=== PATIENT | female | born 1970 | race Hispanic/Latino ===

== ENCOUNTER → 2017-11-20 | Outpatient (CLI) | payer OTHER ==
[~2017-11-20] MED LIST: ANUSOL-HC25 MG RC; APPLE CIDER VI300 MG PO; APPLE CIDER VINEGAR PO; AUGMENTIN 500-1 EACH PO; AZO95 MG PO; COLACE100 MG PO; HYD RC; LEVAQUIN500 MG PO; LIDOCAINE CREAM TP; LIDOCAINE HCL RC; LIPO PO; MELOXICAM7.5 MG PO; MOBIC7.5 MG/5 M PO; MYRBETRIQ50 MG PO; PHENTERMINE H37.5 MG PO; SENNA-S TABLET1 EA PO; SURFAK240 MG PO; TYLENOL WITH C1 EACH PO; ULTRAM 50MG50 MG PO; [UNRECOGNIZED DRUG - OTHER] PO; kenalog TOP
== END ==
LOC: MAMMO 08:47
PROVIDERS: ATTEND Obstetrics & Gynecology
DX: Z12.31 Encounter for screening mammogram for malignant neoplasm of breast (principal)
CPT/HCPCS: 77067

== ENCOUNTER → 2018-11-28 | Outpatient (CLI) | payer OTHER ==
--- NOTE | 2018-12-10 08:44 | Diagnostic Imaging Report ---
#[id number] - MGSCRBIL #BILATERAL DIGITAL SCREENING MAMMOGRAM WITH CAD: 11/28/2018 CLINICAL: Routine screening. Comparison is made to exams dated: 11/20/2017 mammogram and 11/13/2016 mammogram - [facility]. The tissue of both breasts is heterogeneously dense. This may lower the sensitivity of mammography. Current study was also evaluated with a Computer Aided Detection (CAD) system. There are benign calcifications in both breasts. No significant masses, calcifications, or other findings are seen in either breast. There has been no significant interval change. IMPRESSION: BENIGN There is no mammographic evidence of malignancy. A 1 year screening mammogram is recommended. The patient will be notified by letter of the results. GIOVANNI tomlinson/kelly:12/08/2018 10:26:40 Surgical Services Coordinator: Rhonda MORA)(Ayad), [facility] letter sent: Normal Exam Mammogram BI-RADS: 2 Benign
== END ==
LOC: MAMMO 08:56
PROVIDERS: ATTEND Obstetrics & Gynecology
DX: Z12.31 Encounter for screening mammogram for malignant neoplasm of breast (principal)
CPT/HCPCS: 77067

== ENCOUNTER → 2019-11-27 | Outpatient (CLI) | payer OTHER | LOC: MAMMO 10:52 | PROVIDERS: ATTEND Obstetrics & Gynecology | DX: Z12.31 Encounter for screening mammogram for malignant neoplasm of breast (principal) | CPT/HCPCS: 77067 ==

== ENCOUNTER → 2024-07-29 | Outpatient (REF) | payer OTHER ==
[~2024-07-29] MED LIST changes: +NAPROSYN500 MG PO
== END ==
LOC: MAMMO 08:58
PROVIDERS: ATTEND Obstetrics & Gynecology
DX: Z12.31 Encounter for screening mammogram for malignant neoplasm of breast (principal)
CPT/HCPCS: 77067